=== PATIENT | female | born 2000 | race Two or more races ===

== ENCOUNTER 2022-06-24 22:47 | Emergency (ER) | payer MEDICAID ==
[~2022-06-24] VITALS: Ht 157.5 cm; Wt 81.6 kg
[2022-06-24 22:56] VITALS: BP 117/67
[2022-06-24] MEDS ORDERED: IBUPROFEN 600 MG TABLET ONE (23:28)
[2022-06-24] MEDS ORDERED: IBUPROFEN 600 MG TABLET PO ONE (23:30)
--- NOTE | 2022-06-24 23:35 | NUR ---
Patient discharged to home in stable condition. Written and verbal after care instructions given. Patient verbalizes understanding of instruction.
== END 2022-06-24 23:36 | disposition home or self-care (01) ==
LOC: ER 22:49
DX: K01.1 Impacted teeth (principal); H92.02 Otalgia, left ear